=== PATIENT | female | born 1950 | race Hispanic/Latino ===

== ENCOUNTER 2017-12-03 20:04 | Emergency (ER) | payer MEDICARE ==
[~2017-12-03 20:04] MED LIST: CHOL100040 PO; DULO30CA51 PO; FISH OIL OMEGA1 EACH PO; LISI-613 PO; RIVA20TA PO; VERA180T8 PO
[2017-12-03] MEDS ORDERED: ACETAMINOPHEN-CODEINE ELIXIR 5 ML UDCUP ONE (20:27)
[2017-12-03 20:40] LABS: BASOPHILS % (AUTO) 0.9 % (0.0-5.0); EOSINOPHILS % (AUTO) 4.7 % (0.0-8.0); HEMATOCRIT 33.9 % (36-48); LYMPHOCYTES % (AUTO) 31.7 % (21.0-51.0); MEAN CORPUSCULAR HEMOGLOBIN 31.5 pg (27.0-33.0); MEAN CORPUSCULAR HGB CONC 35.4 g/dL (32.0-36.0); MEAN CORPUSCULAR VOLUME 88.9 fL (79-99); MONOCYTES % (AUTO) 8.4 % (3.0-13.0); NEUTROPHILS % (AUTO) 54.3 % (40.0-77.0); PLATELET COUNT (AUTO) 267 K/uL (130-400); RED BLOOD CELL COUNT(AUTO) 3.81 MIL/uL (4.00-5.50); RED CELL DISTRIBUTION WIDTH 13.1 % (11.0-15.5); WHITE BLOOD COUNT (AUTO) 6.4 K/uL (4.8-10.8)
[2017-12-03 20:51] LABS: INR 1.15 (0.85-1.15); PARTIAL THROMBOPLASTIN TIME 36.1 SEC (26.3-35.5)
[2017-12-03 20:52] LABS: CREATININE 0.7 mg/dL (0.5-1.5); POTASSIUM 4.3 mmol/L (3.5-5.1)
[2017-12-03 20:55] LABS: ALBUMIN 3.9 g/dL (3.5-5.0); TOTAL PROTEIN, SERUM 7.7 g/dL (6.0-8.3)
== END 2017-12-03 22:02 | disposition home or self-care (01) ==
LOC: EDH 20:04
DX: S80.11XA Contusion of right lower leg, initial encounter (principal); I10 Essential (primary) hypertension; M19.90 Unspecified osteoarthritis, unspecified site; Z95.0 Presence of cardiac pacemaker; Z88.6 Allergy status to analgesic agent; Z85.51 Personal history of malignant neoplasm of bladder; Z90.49 Acquired absence of other specified parts of digestive tract; X58.XXXA Exposure to other specified factors, initial encounter; Y93.89 Activity, other specified; Y92.098 Other place in other non-institutional residence as the place of occurrence of the external cause; Y99.8 Other external cause status
CPT/HCPCS: 36415; 73590; 80053; 85025; 85610; 85730; 93971

== ENCOUNTER → 2022-02-06 | Outpatient (CLI) | payer MEDICARE ==
[~2022-02-06] MED LIST changes: -DULO30CA51 PO; +DULO30CA52 PO; -LISI-613 PO; +LISI20TA24 PO; +VERA180T61 PO; -VERA180T8 PO
== END | disposition home or self-care (01) ==
LOC: RAH 11:23
PROVIDERS: ATTEND Internal Medicine
DX: M47.812 Spondylosis without myelopathy or radiculopathy, cervical region (principal); M54.2 Cervicalgia; M25.511 Pain in right shoulder; M19.011 Primary osteoarthritis, right shoulder
CPT/HCPCS: 72040; 73030

== ENCOUNTER → 2023-04-21 | Outpatient (CLI) | payer OTHER, MEDICARE | END | disposition home or self-care (01) | LOC: RAH 11:15 | PROVIDERS: ATTEND Internal Medicine | DX: M16.11 Unilateral primary osteoarthritis, right hip (principal); M54.50 Low back pain, unspecified; M54.31 Sciatica, right side; M47.816 Spondylosis without myelopathy or radiculopathy, lumbar region | CPT/HCPCS: 72100; 73502 ==

== ENCOUNTER → 2024-02-09 | Outpatient (CLI) | payer OTHER, MEDICARE | END | disposition home or self-care (01) | LOC: RAH 10:04 | PROVIDERS: ATTEND Internal Medicine | DX: M47.817 Spondylosis without myelopathy or radiculopathy, lumbosacral region (principal); M47.814 Spondylosis without myelopathy or radiculopathy, thoracic region; M54.50 Low back pain, unspecified; M54.6 Pain in thoracic spine; M54.2 Cervicalgia; M48.56XA Collapsed vertebra, not elsewhere classified, lumbar region, initial encounter for fracture; M25.78 Osteophyte, vertebrae | CPT/HCPCS: 72040; 72070; 72100 ==

== ENCOUNTER → 2025-02-23 | Outpatient (CLI) | payer OTHER, MEDICARE ==
[~2025-02-23] MED LIST changes: +REGADENOSON 0.4 MG/5 ML PF SYG IVP ONE
--- NOTE | 2025-02-23 23:27 | HMCSR ---
APPROVED REPORT Height: 4 ft 9in Weight: 182 lbs TEST INDICATIONS Cardiac Arrythmia The imaging protocol used to acquire images was Rest Tc-99m/stress Tc-99m 1 day Consent: The procedure was explained and understood by the patient. Informerd consent was witnessed Mary Mcfadden First, low dose rest was performed then high dose stress. RESTING DATA: The resting ekg shows: Atrial pacing Rest SPECT myocardial perfusion imaging was performed in supine position minutes following the intra venous injection of 11 mCi of Tc-99 Sestamibi. Time of rest injection: Date: 02/23/2025 Time of rest imaging: Date: 02/23/2025 PHARMACOLOGIC STRESS: Pharmacologic stress test was performed by injecting regadenoson 0.4 mg IV push followed by the intra venous injection of 28 mCi of Tc-99 Sestamibi. Time of stress injection: Date: 02/23/2025 Time of stress imaging: Date: 02/23/2025 Heart Rate at time of stress injection: 64 bpm. The images were gated to evaluate regional wall motion and calculate left ventricular ejection fracti on. STRESS DETAILS Reason for Termination: Infusion complete Stress Symptoms: Dyspnea Max HR Achieved: 74 bpm % of APMHR Achieved: 59 Max Blood Pressure: 145/88 mmHg Stress ECG: NSR Study quality was excellent. Lung uptake was Normal. Artifact: No artifact LEFT VENTRICLE Size: The left ventricular size is normal. Systolic Function:The left ventricular systolic function is normal. Wall Motion: No regional wall motion abnormalities noted. The left ventricular ejection fraction was calculated to be 82%.TID = 0.90. LV PERFUSION The rest and stress images show normal perfusion. RV Size/Shape Normal RV Conclusion The left ventricular ejection fraction was calculated to be 82%.TID = 0.90. The rest and stress images show normal perfusion.
== END | disposition home or self-care (01) ==
LOC: RAH 08:21
PROVIDERS: ATTEND Student in an Organized Health Care Education/Training Program
DX: I49.9 Cardiac arrhythmia, unspecified (principal); Z79.899 Other long term (current) drug therapy
CPT/HCPCS: 78452; 93017; J2785; A9500 ×2